=== PATIENT | female | born 1965 | race Caucasian/White ===

== ENCOUNTER 2016-07-14 16:30 | Emergency (ER) | payer MEDICARE ==
--- NOTE | ~2016-07-14 | CR21 ---
[facility] A Service of [facility] & [facility] RADIOLOGY TEXT RESULTS PATIENT: UGO CARLOS LOCATION: [facility] : 61 UNIT #: [id number] AGE: [address]: WALTER WHATLEY SEX: F ORDER DR: [id number] [facility] [address] [place], [place] [address] [id number] E MR#: [id number] Acc #: [id number] NAME: UGO CARLOS. : 1965 SEX: F STUDY DATE/TIME: 07/14/2016 16:06 UNIT: [facility] ROOM: STUDY DESCRIPTION: CR Ankle Min 3 Views Rt Attending Physician: Walter Whatley Aprn Ordering Physician: Waltre Whatley Aprn Primary Care Physician: No Primary Care Physician MEDICAL IMAGING REPORT This report is preliminary unless electronic signature is present EXAM Right ankle. INDICATIONS Right ankle pain since fall yesterday. FINDINGS 3 views of the right ankle were obtained. There is no fracture identified. There is no evidence soft tissue swelling. IMPRESSION Normal right ankle. Dictated by... Jai Betts M.D. THIS IS AN ELECTRONICALLY VERIFIED REPORT Jai Betts M.D. at 07/14/2016 9:54 PM Shakila TD: 07/14/2016 20:34 JOB #: [id number] MEDICAL IMAGING REPORT Page 1 of 1 COPY
[~2016-07-14 16:30] MED LIST: ACETAMINOPHEN PO; ACETAMINOPHEN650 M3 PO; BACTRIM DS TABL1 TA1 PO; BENTYL20 M1 PO; COLESTID PO; CUBICIN IV; CYMBALTA PO; CYMBALTA20 MG PO; DILANTIN PO; DOXEPIN HCL 10 MG/ML PO; DOXEPIN PO; DULOXETINE HCL60 MG PO; FENOFIBRATE48 MG PO; FLORASTOR250 M1 PO; HYDROCODONE-APA1 T57 PO; LANTUS100 U/ML; LANTUS100 U/ML SUBQ; LEVAQUIN PO; LISINOPRIL PO; LYRICA75 MG PO; MAGOX 400400 MG PO; MERREM500 MG INJ; NEURONTIN300 MG PO; NEURONTIN600 MG PO; NORCO 10-325 TA1 TAB PO; NOVOLOG100 U/M2 SUBQ; NOVOLOG100 U/ML; OXYCODON HCL-AP1 TA2 PO; OXYCODONE HCL5 MG PO; OXYCONTIN PO; PANTOPRAZOLE SO20 MG PO; PANTOPRAZOLE SO40 M2 PO; PANTOPRAZOLE SO40 MG PO; PHENERGAN25 M1 PO; PHENERGAN25 MG PO; PROBIOTIC1 EAC1 PO; PROTONIX PO; REGLAN PO; SANTYL15 G1 TOP; SILENOR3 MG PO; TARCEVA150 MG PO; TEMAZEPAM PO; TEMAZEPAM30 MG PO; VANTIN200 MG PO; VITAMIN D5000 UNIT PO; ZESTRIL30 MG PO; ZOFRAN ODT4 MG PO; ZONEGRAN100 MG PO; ZYVOX600 MG PO; [UNRECOGNIZED DRUG - OTHER] PO
== END 2016-07-14 17:33 | disposition home or self-care (01) ==
LOC: CFTX 16:30
DX: S93.401A Sprain of unspecified ligament of right ankle, initial encounter (principal); L03.116 Cellulitis of left lower limb; E11.9 Type 2 diabetes mellitus without complications; Z88.8 Allergy status to other drugs, medicaments and biological substances; Z88.5 Allergy status to narcotic agent; Z79.899 Other long term (current) drug therapy; W18.30XA Fall on same level, unspecified, initial encounter; Y92.89 Other specified places as the place of occurrence of the external cause
CPT/HCPCS: 29540; 73610; 82947; 99283